=== PATIENT | male | born 1960 | race Caucasian/White ===

== ENCOUNTER 2018-07-05 09:50 | Emergency (ER) | payer MEDICAID, MEDICARE ==
[~2018-07-05] VITALS: Ht 182.9 cm; Wt 120.2 kg
[2018-07-05] MEDS ORDERED: cloNIDine HCL 0.1 MG TAB ONE (10:06)
[2018-07-05] MEDS ORDERED: cloNIDine HCL 0.1 MG TAB PO ONE (10:15)
[2018-07-05 11:21] VITALS: BP 145/91
== END 2018-07-05 11:33 | disposition home or self-care (01) ==
LOC: ER 09:50
DX: I10 Essential (primary) hypertension (principal); R51 Headache
CPT/HCPCS: 70450